=== PATIENT | female | born 1965 | race American Indian/Alaskan Native ===

== ENCOUNTER 2018-01-10 13:18 | Outpatient (CLI) | payer BC ==
--- NOTE | 2018-01-10 14:47 | XRay Report ---
XRAY RIGHT KNEE 3 THREE VIEWS: 01/10/18 13:18:00 CLINICAL: Right knee pain. FINDINGS: No fracture or dislocation. Mild osteoarthritis of the medial joint with small medial osteophytes. Patellofemoral osteophytes and a prominent quadriceps insertion enthesophyte. No joint effusion.Normal soft tissues. 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 Quadriceps enthesopathy.
--- NOTE | 2018-01-10 15:18 | XRay Report ---
Right shoulder 3 views: History: Pain in shoulder. Findings: Mild arthritic changes a.c. joint. Cortical irregularity greater tuberosity. Acromiohumeral space appears normal. No soft tissue calcification. Mild arthritic changes at the glenohumeral joint. Impression: Mild ectatic changes a.c. joint and glenohumeral joint. Cortical irregularity greater tuberosity may related to chronic impingement or old injury.
--- NOTE | 2018-01-10 15:19 | XRay Report ---
Cervical spine 4 views: History: Shoulder pain. Findings: Normal height of vertebral bodies. Minimal decrease in height of C4-C5, C5-C6 and C6-C7 with mild cervical spondylosis. Normal prevertebral soft tissue. No fracture. Impression: Mid and lower cervical spine spondylosis.
--- NOTE | 2018-01-10 16:32 | Mammography Report ---
BILATERAL DIGITAL SCREENING MAMMOGRAM with CAD: 01/10/18 13:18:00 CLINICAL: Routine screening. COMPARISON:06/13/16 FINDINGS: The breasts are heterogeneously dense, which may obscure small masses. No mass, architectural distortion or suspicious calcifications. IMPRESSION: No mammographic evidence of malignancy. BI-RADS CATEGORY: 1 - - Negative RECOMMENDATION: Routine mammographic screening in one year. COMMENT: Patient follow-up letters are generated by our [email or web address] application.
== END 2018-01-10 13:19 | disposition home or self-care (01) ==
LOC: SPVWC 13:18
PROVIDERS: ATTEND Nurse Practitioner Family
DX: Z12.31 Encounter for screening mammogram for malignant neoplasm of breast (principal); M47.892 Other spondylosis, cervical region; M19.011 Primary osteoarthritis, right shoulder; M17.11 Unilateral primary osteoarthritis, right knee; M76.891 Other specified enthesopathies of right lower limb, excluding foot
CPT/HCPCS: 72050; 77067

== ENCOUNTER 2019-06-19 14:26 | Outpatient (CLI) | payer BC, OTHER ==
--- NOTE | 2019-06-20 15:36 | Mammography Report ---
DIGITAL SCREENING MAMMOGRAM WITH CAD, 06/19/2019 INDICATION: Routine screening mammography. TECHNIQUE: Digital bilateral 2D mammography was obtained in the craniocaudal and mediolateral obliq ue projections. This examination was interpreted with the benefit of Computer-Aided Detection analysi s. COMPARISON: 01/10/2018 FINDINGS: Breast Density: The breasts are heterogeneously dense, which may obscure small masses. There is no evidence of dominant mass, suspicious calcifications or architectural distortion in eithe r breast. Bilateral benign calcifications. IMPRESSION: No mammographic evidence of malignancy. Follow up recommendation: Routine yearly BI-RADS Category 2: Benign. A "normal" or negative report should not discourage follow up or biopsy of a clinically significant f inding. A written summary of these findings will be mailed to the patient. The patient will be entered into a mammography reporting system which will generate a reminder letter for the patient's next appointmen t at the appropriate interval. The [employer] recommends yearly mammograms starting at age 40 and continuing as l nahum as a woman is in good health. Breast MRI is recommended for women with an approximate 20-25% or greater lifetime risk of breast cancer, including women with a strong family history of breast or ova cece cancer or who have been treated for Hodgkin's disease. Signer Name: Zachery Paredes MD Signed: 06/20/2019 3:32 PM Workstation Name: [id number]
== END 2019-06-19 14:27 | disposition home or self-care (01) ==
LOC: SPVWC 14:26
PROVIDERS: ATTEND Internal Medicine
DX: Z12.31 Encounter for screening mammogram for malignant neoplasm of breast (principal)
CPT/HCPCS: 77067